=== PATIENT | male | born 1960 | race Caucasian/White ===

== ENCOUNTER 2017-04-03 12:51 | Emergency (ER) | payer OTHER ==
[2017-04-03] MEDS ORDERED: Aspirin 81 MG Tab.Chew PO ONE (13:16)
[2017-04-03] MEDS ORDERED: Sodium Chloride 0.9% 10 ML Syringe FLUSH PRN (13:16)
--- NOTE | 2017-04-03 13:22 | EDM.PDOC ---
ED HPI GENERAL MEDICAL PROBLEM - General Chief Complaint: Chest Pain Stated Complaint: Chest pain Time Seen by Provider: 04/03/17 13:00 Source of Information: Reports: Patient, RN Notes Reviewed History Limitations: Reports: No Limitations - History of Present Illness INITIAL COMMENTS - FREE TEXT/NARRATIVE: 56 year old male presents to the ED with substernal chest pain for the past 12+ hours. Symptoms started last evening and have been constant since that time. The pain is described as a pressure. The pain radiates into his back, right neck and left arm. He has associated diaphoresis and nausea but no vomiting. He feels short of breath and is very anxious. He reports a recent cold with cough and congestion. No fever or chills. His chest is non-tender to palpation. He smokes approximately 1/2 ppd and is trying to quit. He has a history of an MT in his 40s. He is a delivery truck driver. No lower extremity edema or calf pain. No history of blood clots. He admits to drinking 3 "crown bombs" last evening which consist of whiskey mixed with an energy drink. He denies drinking alcohol daily. Denies epigastric pain or tenderness. He also has a history of hypertension and anxiety attacks. He has a listed allergy to lorazepam but says he is prescribed Ativan and does well with it. He has a family history of heart attack, his mother and brother specifically. Middle Chest Pain Score (Numeric/FACES): 7 - Related Data Allergies Allergy/AdvReac Type Severity Reaction Status Date / Time No Known Allergies Allergy Verified 04/03/17 13:31 Home Meds: Home Meds Albuterol [Ventolin HFA] 2 puff INH Q4H PRN 05/25/14 [History] Albuterol Sulfate 1.25 mg IH Q4HR PRN 07/19/14 [History] LORazepam 1 tab PO ASDIRECTED 04/03/17 [History] Lisinopril [Prinivil] 10 mg PO DAILY 04/03/17 [History] Multivitamin [Multi-Vitamin Daily] 1 tab PO DAILY 04/03/17 [History] Orphenadrine [Norflex] 100 mg PO BID #10 tab.er 04/03/17 [Rx] atorvaSTATin [Lipitor] 10 mg PO DAILY 04/03/17 [History] Past Medical History Cardiovascular History: Reports: MT Respiratory History: Reports: Asthma, COPD - Past Surgical History GI Surgical History: Reports: Colonoscopy Musculoskeletal Surgical History: Reports: ORIF Social & Family History - Tobacco Use Smoking Status *Q: Current Status Unknown Years of Tobacco use: 30 Packs/Tins Daily: 0.7 Used Tobacco, but Quit: No Month Tobacco Last Used: APRIL Second Hand Smoke Exposure: Yes - Alcohol Use Days Per Week of Alcohol Use: 0 - Recreational Drug Use Recreational Drug Use: Yes Recreational Drug Type: Reports: Marijuana/Hashish - Living Situation & Occupation Living situation: Reports: , with Spouse ED ROS GENERAL - Review of Systems Review Of Systems: See Below Constitutional: Reports: Diaphoresis. Denies: Fever, Chills Respiratory: Reports: Shortness of Breath, Cough. Denies: Pleuritic Chest Pain , Sputum Cardiovascular: Reports: Chest Pain. Denies: Edema GI/Abdominal: Reports: Nausea. Denies: Abdominal Pain, Vomiting Skin: Reports: Diaphoresis Psychiatric: Reports: Anxiety ED EXAM, GENERAL - Physical Exam Exam: See Below Exam Limited By: No Limitations General Appearance: Alert, WD/WN, Anxious, Mild Distress Respiratory/Chest: No Respiratory Distress, Lungs Clear, Normal Breath Sounds, No Accessory Muscle Use, Chest Non-Tender Cardiovascular: Normal Peripheral Pulses, No Edema, No Murmur, Tachycardia GI/Abdominal: Normal Bowel Sounds, Soft, Non-Tender, No Distention. No: Guarding, Rigid, Rebound Neurological: Alert, Oriented, Normal Cognition Psychiatric: Anxious Skin Exam: Warm, Intact, Diaphoretic EKG INTERPRETATION EKG Date: 04/03/17 Time: 12:57 Rhythm: other (sinus tach) Rate (beats/min): 107 [place]: normal P-wave: present QRS: normal ST-T: normal QT: normal EKG Interpretation Comments: EKG read by Dr. Frazier. No ischemic changes. Course - Vital Signs Last Recorded V/S: Last Vital Signs Temp 98.1 F 04/03/17 12:59 Pulse 70 04/03/17 18:20 Resp 12 04/03/17 18:20 BP 150/83 H 04/03/17 18:20 Pulse Ox 98 04/03/17 18:20 - Orders/Labs/Meds Orders: Active Orders 24 hr Category Date Time Status Cardiac Monitoring [RC] . DIRECTED Care 04/03/17 13:15 Active EKG 12 Lead [EKG Documentation Completion] [RC] STAT Care 04/03/17 13:15 Active Peripheral IV Care [RC] . DIRECTED Care 04/03/17 13:16 Active CXR [Chest 1V Frontal] [CR] Stat Exams 04/03/17 13:15 Taken Peripheral IV Insertion Adult [OM.PC] Stat Oth 04/03/17 13:16 Ordered Labs: Laboratory Tests 04/03/17 04/03/17 04/03/17 Range/Units 14:00 14:00 14:00 WBC 11.09 H (4.23-9.07) K/mm3 RBC 4.59 L (4.63-6.08) M/mm3 Hgb 14.4 (13.7-17.5) gm/L Hct 42.0 (40.1-51.0) % MCV 91.5 (79.0-92.2) fl MCH 31.4 (25.7-32.2) pg MCHC 34.3 (32.2-35.5) g/dl RDW Std Deviation 43.1 (35.1-43.9) fL Plt Count 290 (163-337) K/mm3 MPV 9.6 (9.4-12.3) fl Neut % (Auto) 69.5 H (34.0-67.9) % Lymph % (Auto) 18.8 L (21.8-53.1) % [place] % (Auto) 10.6 (5.3-12.2) % Eos % (Auto) 0.5 L (0.8-7.0) Baso % (Auto) 0.3 (0.1-1.2) % Neut # (Auto) 7.72 H (1.78-5.38) K/mm3 Lymph # (Auto) 2.08 (1.32-3.57) K/mm3 [place] # (Auto) 1.17 H (0.30-0.82) K/mm3 Eos # (Auto) 0.06 (0.04-0.54) K/mm3 Baso # (Auto) 0.03 (0.01-0.08) K/mm3 D-Dimer, Quantitative 0.27 (0.19-0.59) mg/L Sodium 142 (136-145) mEq/L Potassium 3.7 (3.5-5.1) mEq/L Chloride 104 (98-107) mEq/L Carbon Dioxide 23 (21-32) mEq/L Anion Gap 18.7 H (5-15) BUN 19 H (7-18) mg/dL Creatinine 0.9 (0.7-1.3) mg/dL Est Cr Clr Drug Dosing TNP Estimated GFR (MDRD) > 60 (>60) mL/min BUN/Creatinine Ratio 21.1 H (14-18) Glucose 112 H (74-106) mg/dL Calcium 9.0 (8.5-10.1) mg/dL Total Bilirubin 0.7 (0.2-1.0) mg/dL AST 19 (15-37) U/L ALT 27 (16-63) U/L Alkaline Phosphatase 124 H (46-116) U/L Troponin I < 0.017 (0.00-0.056) ng/mL Total Protein 7.8 (6.4-8.2) g/dl Albumin 3.9 (3.4-5.0) g/dl Globulin 3.9 gm/dL Albumin/Globulin Ratio 1.0 (1-2) /02/14 Range/Units 17:05 WBC (4.23-9.07) K/mm3 RBC (4.63-6.08) M/mm3 Hgb (13.7-17.5) gm/L Hct (40.1-51.0) % MCV (79.0-92.2) fl MCH (25.7-32.2) pg MCHC (32.2-35.5) g/dl RDW Std Deviation (35.1-43.9) fL Plt Count (163-337) K/mm3 MPV (9.4-12.3) fl Neut % (Auto) (34.0-67.9) % Lymph % (Auto) (21.8-53.1) % [place] % (Auto) (5.3-12.2) % Eos % (Auto) (0.8-7.0) Baso % (Auto) (0.1-1.2) % Neut # (Auto) (1.78-5.38) K/mm3 Lymph # (Auto) (1.32-3.57) K/mm3 [place] # (Auto) (0.30-0.82) K/mm3 Eos # (Auto) (0.04-0.54) K/mm3 Baso # (Auto) (0.01-0.08) K/mm3 D-Dimer, Quantitative (0.19-0.59) mg/L Sodium (136-145) mEq/L Potassium (3.5-5.1) mEq/L Chloride (98-107) mEq/L Carbon Dioxide (21-32) mEq/L Anion Gap (5-15) BUN (7-18) mg/dL Creatinine (0.7-1.3) mg/dL Est Cr Clr Drug Dosing Estimated GFR (MDRD) (>60) mL/min BUN/Creatinine Ratio (14-18) Glucose (74-106) mg/dL Calcium (8.5-10.1) mg/dL Total Bilirubin (0.2-1.0) mg/dL AST (15-37) U/L ALT (16-63) U/L Alkaline Phosphatase (46-116) U/L Troponin I < 0.017 (0.00-0.056) ng/mL Total Protein (6.4-8.2) g/dl Albumin (3.4-5.0) g/dl Globulin gm/dL Albumin/Globulin Ratio (1-2) Meds: Medications Discontinued Medications Generic Name Dose Route Start Last Admin Trade Name Freq PRN Reason Stop Dose Admin Aspirin 324 mg 04/03/17 13:16 04/03/17 13:25 Aspirin PO 04/03/17 13:17 324 mg ONETIME ONE Administration Lorazepam 1 mg 04/03/17 13:30 04/03/17 13:52 Ativan IVPUSH 04/03/17 13:31 1 mg ONETIME ONE Administration Sodium Chloride 10 ml 04/03/17 13:16 04/03/17 13:25 Saline Flush FLUSH 10 ml ASDIRECTED PRN Administration Keep Vein Open - Re-Assessments/Exams Free Text/Narrative Re-Assessment/Exam: The patient was extremely anxious upon arrival. He had a listed allergy to lorazepam but said he takes lorazepam at home and does not have an allergy. He was treated with aspirin and ativan upon arrival. Initial EKG was negative for ischemic changes. CBC is normal. CMP reveals elevated anion gap. Otherwise normal. Initial troponin is normal. D-dimer normal. Plan is to monitor and repeat troponin in 3 hours. Portable chest x-ray reveals hyperinflation. No acute infiltrates or effusions. Heart size and mediastinum appear normal. 3 hour troponin came back WNL. He reports improvement in his chest discomfort. He requests to be discharged and f/u with Dr. Romero in [place]. I considered obs admission but patient adamantly wants to go home. I thoroughly explained to him and his family that cardiac etiology has not been ruled out. I recommend a stress test and offered to set that up for him but he declined. He would like to see Dr. Romero and have him coordinate this. I instructed him to see Dr. Heather FLORES. He was thoroughly educated on return precautions. He has a history of chest wall injury and is requesting muscle relaxant. I agreed to give him a muscle relaxant to try but stressed again that cardiac etiology has not been ruled out. Departure - Departure Time of Disposition: 18:00 Disposition: Home, Self-Care 01 Condition: fair Clinical Impression: Chest pain of uncertain etiology Prescriptions: Orphenadrine [Norflex] 100 mg PO BID #10 tab.er Instructions: Nonspecific Chest Pain, [id number] Referrals: Kassandra Maxwell MD [Primary Care Provider] - Forms: ED Department Discharge Care Plan Goals: Follow-up with Dr. Heather flores, preferably tomorrow or Tuesday I recommend stress test for further evaluation of your chest pain Return to ER if symptoms persist or worsen in any way Continue lorazepam as needed for anxiety Muscle relaxer: Norflex 1 tab every 12 hours as needed - My Orders Last 24 Hours: My Active Orders 04/03/17 13:15 Cardiac Monitoring [RC] . DIRECTED EKG 12 Lead [EKG Documentation Completion] [RC] STAT CXR [Chest 1V Frontal] [CR] Stat 04/03/17 13:16 Peripheral IV Care [RC] . DIRECTED Peripheral IV Insertion Adult [OM.PC] Stat - Assessment/Plan Last 24 Hours: My Active Orders 04/03/17 13:15 Cardiac Monitoring [RC] . DIRECTED EKG 12 Lead [EKG Documentation Completion] [RC] STAT CXR [Chest 1V Frontal] [CR] Stat 04/03/17 13:16 Peripheral IV Care [RC] . DIRECTED Peripheral IV Insertion Adult [OM.PC] Stat
[2017-04-03] MEDS ORDERED: LORazepam 2 MG/ML MDV IVPUSH ONE (13:30)
[2017-04-03 18:37] VITALS: BP 150/83
--- NOTE | 2017-04-04 09:06 | CR ---
Chest: Portable view of the chest was obtained. Comparison: Previous chest x-ray of 12/28/15. Heart size and mediastinum are within normal limits for portable technique. Lungs are clear. Bony structures are grossly intact. Impression: 1. Nothing acute is identified on portable chest x-ray. Diagnostic code #1
== END 2017-04-03 18:30 | disposition home or self-care (01) ==
LOC: JD.ED 12:51
DX: R07.9 Chest pain, unspecified (principal); I25.2 Old myocardial infarction; J45.909 Unspecified asthma, uncomplicated; J44.9 Chronic obstructive pulmonary disease, unspecified; I10 Essential (primary) hypertension; F41.9 Anxiety disorder, unspecified; F17.210 Nicotine dependence, cigarettes, uncomplicated; Z79.899 Other long term (current) drug therapy; Z88.8 Allergy status to other drugs, medicaments and biological substances; Z98.890 Other specified postprocedural states
CPT/HCPCS: 36415; 71010; 80053; 84484; 85025; 85379; 93005; 96374; 99285; A9270; J2060; J7050; 99284

== ENCOUNTER 2017-04-13 20:16 | Emergency (ER) | payer OTHER ==
[2017-04-13] MEDS ORDERED: Sodium Chloride 0.9% 10 ML Syringe FLUSH PRN (20:38)
[2017-04-13] MEDS ORDERED: Aspirin 81 MG Tab.Chew PO ONE (20:38)
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
[2017-04-13] MEDS ORDERED: Metoprolol Tartrate 25 MG Tab PO ONE (22:37)
[2017-04-13] MEDS ORDERED: Enoxaparin 80 MG/0.8 ML Syringe SUBCUT ONE (22:39)
[2017-04-13] MEDS ORDERED: Nitroglycerin/D5W 25 MG/250 ML BOTTLE IV SCH (22:45)
[2017-04-13] MEDS ORDERED: Metoprolol Tartrate 50 MG Tab ONE (22:50)
[2017-04-13] MEDS ORDERED: Enoxaparin 80 MG/0.8 ML Syringe ONE (22:54)
[2017-04-13] MEDS ORDERED: Nitroglycerin/D5W 25 MG/250 ML BOTTLE ONE (22:59)
[2017-04-13 23:06] VITALS: BP 130/77
--- NOTE | 2017-04-14 07:46 | CR ---
Chest: Frontal view of the chest was obtained. Comparison: Previous chest x-ray of 04/03/17. Heart size and mediastinum are within normal limits. Lungs are clear. Bony structures are grossly intact. Impression: 1. Nothing acute is identified on frontal chest x-ray. Diagnostic code #1
== END 2017-04-13 23:40 ==
LOC: JD.ED 20:16
DX: I20.0 Unstable angina (principal); I10 Essential (primary) hypertension; E78.00 Pure hypercholesterolemia, unspecified; I25.2 Old myocardial infarction; J45.909 Unspecified asthma, uncomplicated; J44.9 Chronic obstructive pulmonary disease, unspecified; F41.9 Anxiety disorder, unspecified; F17.210 Nicotine dependence, cigarettes, uncomplicated; Z98.890 Other specified postprocedural states; Z79.899 Other long term (current) drug therapy
CPT/HCPCS: 36415; 71010; 80053; 83880; 84484; 85025; 93005; 96365; 96372; 99285; A9270; J1650; 99284

== ENCOUNTER → 2017-12-07 | Day surgery (SDC) | payer BC ==
[~2017-12-07] MED LIST: Lactated Ringers 1,000 ML IV SCH; Lidocaine 1%/Sod Bicarbonate in NS 8.4% 1 ML Syringe IDERM PRN; Midazolam 1 MG/ML 2 ML SDV ONE; Propofol 200 MG/20 ML SDV ONE; Sodium Chloride 0.9% 10 ML Syringe FLUSH PRN; fentaNYL 100 MCG/2 ML SDV ONE
--- NOTE | 2017-12-07 10:54 | PCM.PREANE ---
Preanesthetic Assessment - Anesthesia/Transfusion/Family Hx Anesthesia History: Prior Anesthesia Without Reaction Family History of Anesthesia Reaction: No Transfusion History: No Prior Transfusion(s) - Review of Systems General: No Symptoms Pulmonary: Cough Cardiovascular: No Symptoms, Dyspnea on Exertion Gastrointestinal: No Symptoms Neurological: Numbness (left hand) Other: Reports: None - Physical Assessment NPO Status Date: 12/06/17 NPO Status Time: 00:00 Pulse: 75 O2 Sat by Pulse Oximetry: 96 Respiratory Rate: 20 Blood Pressure: 146/98 Temperature: 36.7 C Height: 1.83 m Weight: 78 kg ASA Class: 3 Mental Status: Alert & Oriented x3 Airway Class: Mallampati = 1 Dentition: Reports: Dentures Thyro-Mental Finger Breadths: 3 Mouth Opening Finger Breadths: 3 ROM/Head Extension: Full Lungs: Clear to Auscultation, Normal Respiratory Effort Cardiovascular: Regular Rate, Regular Rhythm - Allergies Allergies/Adverse Reactions: Allergies Allergy/AdvReac Type Severity Reaction Status Date / Time pet dander Allergy Cannot Uncoded 12/06/17 14:54 Remember - Blood Blood Available: No Product(s) Available: None - Anesthesia Plan Pre-Op Medication Ordered: None - Acknowledgements Anesthesia Type Planned: MAC Pt an Appropriate Candidate for the Planned Anesthesia: Yes Alternatives and Risks of Anesthesia Discussed w Pt/Guardian: Yes Pt/Guardian Understands and Agrees with Anesthesia Plan: Yes PreAnesthesia Questionnaire HEENT History: Reports: Allergic Rhinitis, Hard of Hearing, Impaired Vision, Otitis Media, Other (See Below) Other HEENT History: right eye conjunctivitis, wears glasses, has dentures Cardiovascular History: Reports: CAD, Hypertension, [place] Other Cardiovascular History: mitral valve prolapse, atypical chest pain, [place], heart cath x 2 Respiratory History: Reports: Asthma, COPD, Other (See Below) Other Respiratory History: cough, pneumonia Gastrointestinal History: Reports: Chronic Diarrhea, GERD, Other (See Below) Other Gastrointestinal History: stool incontinence Genitourinary History: Reports: Prostate Disorder, Other (See Below) Other Genitourinary History: frequency, anuria 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 Musculoskeletal History: Reports: Back Pain, Chronic, Other (See Below) Other Musculoskeletal History: left ischium fracture, tibia fracture, muscle pain, right elbow lateral epicondylitis, lumbar spine straine, medic al meniscus tear, pelvic fracutre, left knee strain Neurological History: Reports: Headaches, Chronic Psychiatric History: Reports: Anxiety, Depression, Other (See Below) Other Psychiatric History: insomnia Endocrine/Metabolic History: Reports: None Hematologic History: Reports: None Immunologic History: Reports: None Oncologic (Cancer) History: Reports: None Dermatologic History: Reports: Other (See Below) Other Dermatologic History: cellulitis - Past Surgical History Head Surgeries/Procedures: Reports: None HEENT Surgical History: Reports: None Cardiovascular Surgical History: Reports: None Respiratory Surgical History: Reports: None GI Surgical History: Reports: Colonoscopy Female Surgical History: Reports: None Male Surgical History: Reports: None Endocrine Surgical History: Reports: None Neurological Surgical History: Reports: None Musculoskeletal Surgical History: Reports: ORIF Other Musculoskeletal Surgeries/Procedures:: left ankle surgery with hardware Oncologic Surgical History: Reports: None Dermatological Surgical History: - SUBSTANCE USE Smoking Status *Q: Current Every Day Smoker Tobacco Use Within Last Twelve Months: Cigarettes Second Hand Smoke Exposure: Yes Days Per Week of Alcohol Use: 0 Number of Drinks Per Day: 1 Total Drinks Per Week: 0 Recreational Drug Use History: No Recreational Drug Type: Reports: Marijuana/Hashish - HOME MEDS Home Medications: Home Meds Albuterol [Ventolin HFA] 2 puff INH Q4H PRN 05/25/14 [History] Lisinopril [Prinivil] 10 mg PO DAILY 04/03/17 [History] Tamsulosin [Flomax] 0.4 mg PO DAILY 12/06/17 [History] atorvaSTATin Calcium [Atorvastatin Calcium] 20 mg PO DAILY 12/06/17 [History] - CURRENT (IN HOUSE) MEDS Current Meds: Current Medications Lactated Ringer's (Ringers, Lactated) 1,000 mls @ 125 mls/hr IV ASDIRECTED MINDY Stop: 12/07/17 23:00 Lidocaine/Sodium Bicarbonate (Buffered Lidocaine 1% In Ns 8.4%) 0.25 ml IDERM ONETIME PRN PRN Reason: Prior to IV Start Stop: 12/07/17 18:00 Sodium Chloride (Saline Flush) 10 ml FLUSH ASDIRECTED PRN PRN Reason: Keep Vein Open Stop: 12/07/17 18:00
--- NOTE | 2017-12-07 11:53 | PCM.OPNOTE ---
- General Post-Op/Procedure Note Operative Procedure(s): 1. Esophagogastroduodenoscopy with GE junction biopsy. 2. Diagnostic colonoscopy with right colon transverse colon and rectal biopsies ; diminutive sigmoid polypectomy Findings: 1. Normal upper endoscopy 2. Large prolapsed 3 column internal hemorrhoids, normal prostate 3. Sigmoid diverticulosis 4. Diminutive sigmoid polyp No upper endoscopic or lower endoscopic inflammatory changes seen endoscopically. Pre Op Diagnosis: 1. GERD. 2. Chronic diarrhea of unknown etiology Post-Op Diagnosis: 1. Normal upper endoscopy. 2. Large prolapsed 3 column internal hemorrhoids, normal prostate. 3. Sigmoid diverticulosis. 4. Diminutive sigmoid polyp Anesthesia Technique: MAC, Moderate Sedation Primary Surgeon: Holland Menendez Pathology: 1. GE junction biopsy 2. Ascending colon transverse colon and rectal biopsies 3. Sigmoid polyp EBL in mLs: 0 Complications: None Condition: Good Free Text/Narrative:: After adequate IV sedation and analgesia was obtained the patient was placed on his left side with monitoring. Through a bite block a lubricated upper endoscope was inserted into the esophagus and advanced under direct vision to the stomach. Additional air was given here. The scope was advanced towards the antrum and pylorus. The second and first parts of the duodenum were endoscopically normal with no mass lesions or inflammatory changes seen. The antrum was unremarkable. In the retroflexed B the fundic and cardiac regions were endoscopically normal. There was no hiatal hernia. The body of the stomach was normal as well. The scope was then withdrawn to the GE junction. I biopsied the GE junction 2 with cold forceps for histologic evaluation. The body of the esophagus was unremarkable. The vocal cords were briefly visualized on extubation and were normal. Perianal inspection and digital rectal examination were performed next and were remarkable for large prolapse 3 column internal hemorrhoids which were uncomplicated. They were reducible A lubricated colonoscope was inserted into the rectum through a tortuous sigmoid to the cecum without difficulty. The bowel preparation was adequate. The cecum ascending colon transverse and descending colons were endoscopically normal with no mass lesions or inflammatory changes. Given his history I took random biopsy of the right colon and transverse colons. The sigmoid had circular muscle hypertrophy along with associated sigmoid diverticula. The rectum in both views was unremarkable. I took random biopsy 2 in this area as well. Air was removed as I finished the procedure. Photographs were taken for the patient and for the medical records. There were no procedural complications.
[2017-12-07 12:25] VITALS: BP 135/88
== END | disposition home or self-care (01) ==
LOC: JD.SDS 10:16
PROVIDERS: ATTEND Surgery
DX: K57.30 Diverticulosis of large intestine without perforation or abscess without bleeding (principal); K64.8 Other hemorrhoids; J30.81 Allergic rhinitis due to animal (cat) (dog) hair and dander
CPT/HCPCS: 43239; 45380; J2250; J3010; J7120; 00813; J2704

== ENCOUNTER 2018-01-18 10:32 | Day surgery (SDC) | payer BC ==
--- NOTE | 2018-01-18 09:36 | PCM.PREANE ---
Preanesthetic Assessment - Anesthesia/Transfusion/Family Hx Anesthesia History: Prior Anesthesia Without Reaction Family History of Anesthesia Reaction: No Transfusion History: No Prior Transfusion(s) Intubation History: Unknown - Review of Systems General: No Symptoms Pulmonary: No Symptoms (current every day smoker/less than 1 pack/day times 15 years./ History of COPD, Asthma/history of Marijuana use) Cardiovascular: No Symptoms (history of HTN, [place], heart catheterization noted a few months ago, patient does not remember exact month.), Dyspnea on Exertion, Lightheadedness (Patient states with current medications, dizziness does occur.) Gastrointestinal: No Symptoms Neurological: No Symptoms ( lower back pain) Other: Reports: None - Physical Assessment NPO Status Date: 01/17/18 NPO Status Time: 21:00 Pulse: 78 O2 Sat by Pulse Oximetry: 98 Respiratory Rate: 16 Blood Pressure: 129/89 Temperature: 36.9 C Height: 1.83 m Weight: 79.832 kg ASA Class: 3 Mental Status: Alert & Oriented x3 Airway Class: Mallampati = 1 Dentition: Reports: Dentures Thyro-Mental Finger Breadths: 3 Mouth Opening Finger Breadths: 3 ROM/Head Extension: Full Lungs: Clear to Auscultation, Normal Respiratory Effort Cardiovascular: Regular Rate, Regular Rhythm, No Murmurs - Lab Values: All lab values reviewed and noted and within acceptable ranges to proceed with scheduled procedure. - Imaging/EKG Impressions: EKG: SR rate= 80. Echocardiogram: EF=55%, trace tricuspid/trace bicuspid valve regurgitation/ mild concentric left ventricular hypertrophy. - Allergies Allergies/Adverse Reactions: Allergies Allergy/AdvReac Type Severity Reaction Status Date / Time pet dander Allergy Cannot Uncoded 01/17/18 13:54 Remember - Anesthesia Plan Pre-Op Medication Ordered: None - Acknowledgements Anesthesia Type Planned: MAC Pt an Appropriate Candidate for the Planned Anesthesia: Yes Alternatives and Risks of Anesthesia Discussed w Pt/Guardian: Yes Pt/Guardian Understands and Agrees with Anesthesia Plan: Yes PreAnesthesia Questionnaire HEENT History: Reports: Allergic Rhinitis, Hard of Hearing, Impaired Vision, Otitis Media, Other (See Below) Other HEENT History: right eye conjunctivitis, wears glasses, has dentures Cardiovascular History: Reports: CAD, Hypertension, [place] Other Cardiovascular History: mitral valve prolapse, atypical chest pain, [place], heart cath x 2 Respiratory History: Reports: Asthma, COPD, Other (See Below) Other Respiratory History: cough, pneumonia Gastrointestinal History: Reports: Chronic Diarrhea, GERD, Other (See Below) Other Gastrointestinal History: stool incontinence Genitourinary History: Reports: Prostate Disorder, Other (See Below) Other Genitourinary History: frequency, anuria 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 Musculoskeletal History: Reports: Back Pain, Chronic, Other (See Below) Other Musculoskeletal History: left ischium fracture, tibia fracture, muscle pain, right elbow lateral epicondylitis, lumbar spine straine, medic al meniscus tear, pelvic fracutre, left knee strain Neurological History: Reports: Headaches, Chronic Psychiatric History: Reports: Anxiety, Depression, Other (See Below) Other Psychiatric History: insomnia Endocrine/Metabolic History: Reports: None Hematologic History: Reports: None Immunologic History: Reports: None Oncologic (Cancer) History: Reports: None Dermatologic History: Reports: Other (See Below) Other Dermatologic History: cellulitis - Past Surgical History Head Surgeries/Procedures: Reports: None HEENT Surgical History: Reports: None Cardiovascular Surgical History: Reports: None Respiratory Surgical History: Reports: None GI Surgical History: Reports: Colonoscopy Female Surgical History: Reports: None Male Surgical History: Reports: None Endocrine Surgical History: Reports: None Neurological Surgical History: Reports: None Musculoskeletal Surgical History: Reports: ORIF Other Musculoskeletal Surgeries/Procedures:: left ankle surgery with hardware Oncologic Surgical History: Reports: None - SUBSTANCE USE Smoking Status *Q: Current Every Day Smoker Tobacco Use Within Last Twelve Months: Cigarettes Second Hand Smoke Exposure: Yes Days Per Week of Alcohol Use: 0 Number of Drinks Per Day: 1 Total Drinks Per Week: 0 Recreational Drug Use History: No Recreational Drug Type: Reports: Marijuana/Hashish - HOME MEDS Home Medications: Home Meds Albuterol [Ventolin HFA] 2 puff INH Q4H PRN 05/25/14 [History] Lisinopril [Prinivil] 10 mg PO DAILY 04/03/17 [History] Tamsulosin [Flomax] 0.4 mg PO DAILY 12/06/17 [History] atorvaSTATin Calcium [Atorvastatin Calcium] 20 mg PO DAILY 12/06/17 [History] Omeprazole 20 mg PO BID 01/17/18 [History] Sildenafil [Viagra] 75 mg PO ASDIRECTED PRN 01/17/18 [History] - CURRENT (IN HOUSE) MEDS Current Meds: Current Medications Lactated Ringer's (Ringers, Lactated) 1,000 mls @ 125 mls/hr IV ASDIRECTED MINDY Stop: 01/18/18 23:00 Lidocaine/Sodium Bicarbonate (Buffered Lidocaine 1% In Ns 8.4%) 0.25 ml IDERM ONETIME PRN PRN Reason: Prior to IV Start Stop: 01/18/18 18:00 Sodium Chloride (Saline Flush) 10 ml FLUSH ASDIRECTED PRN PRN Reason: Keep Vein Open Stop: 01/18/18 18:00 Discontinued Medications Lidocaine HCl (Xylocaine-Mpf 1%) Confirm Administered Dose 4 mls @ as directed .ROUTE .STK-MED ONE Stop: 01/18/18 08:14 Propofol (Diprivan 20 Ml) Confirm Administered Dose 200 mg .ROUTE .STK-MED ONE Stop: 01/18/18 08:14
[~2018-01-18 10:32] MED LIST changes: +Lidocaine 1% 4 ML ONE; -Midazolam 1 MG/ML 2 ML SDV ONE; -fentaNYL 100 MCG/2 ML SDV ONE
[2018-01-18] MEDS ORDERED: fentaNYL 100 MCG/2 ML SDV ONE (11:11)
[2018-01-18] MEDS ORDERED: ePHEDrine 50 MG/ML SDV ONE (11:20)
[2018-01-18] MEDS ORDERED: Bupivacaine 0.5%/EPINEPHrine 1:200,000 50 ML MDV ONE (11:41)
[2018-01-18] MEDS ORDERED: Lidocaine 1% with EPINEPHrine 1:100,000 20 ML MDV ONE (11:41)
[2018-01-18] MEDS ORDERED: Midazolam 1 MG/ML 2 ML SDV ONE (11:44)
[2018-01-18] MEDS ORDERED: Ondansetron 4 MG/2 ML SDV IVPUSH PRN (12:54)
[2018-01-18] MEDS ORDERED: fentaNYL 100 MCG/2 ML SDV IVPUSH PRN (12:54)
[2018-01-18] MEDS ORDERED: diphenhydrAMINE 50 MG/ML SDV IVPUSH PRN (12:54)
--- NOTE | 2018-01-18 13:01 | PCM.OPNOTE ---
- General Post-Op/Procedure Note Date of Surgery/Procedure: 01/18/18 Operative Procedure(s): 3 column internal hemorrhoid rubber band ligation with the short shot Findings: 3 column slightly prolapsed internal hemorrhoids Pre Op Diagnosis: 3 column internal hemorrhoids with intermittent painless bleeding Post-Op Diagnosis: Grade 2 internal hemorrhoids Anesthesia Technique: MAC, Moderate Sedation Primary Surgeon: Holland Menendez Pathology: None EBL in mLs: 2 Complications: None Condition: Good Free Text/Narrative:: After adequate IV sedation and analgesia was obtained with monitoring the patient was placed in the prone jackknife position with his buttocks taped. The perianal region was prepped with Betadine and draped sterilely. The 3 column hemorrhoids were slightly prolapsing in this position. Digital rectal examination was remarkable for the hemorrhoids with no mass lesions appreciated. The prostate was normal. Anoscopy was then performed next and this revealed the internal hemorrhoids with no mass lesions identified. With the working scope in place I then used the Short Shot and fired rubber bands in the left lateral right anterior and right posterior columns. There were no complications.
[2018-01-18] MEDS ORDERED: Lidocaine 1% 2 ML ONE ×3 (13:05→13:06)
--- NOTE | 2018-01-18 13:10 | PCM48HPAN ---
Post Anesthesia Note - EVALUATION WITHIN 48HRS OF ANESTHETIC Vital Signs in Normal Range: Yes Patient Participated in Evaluation: Yes Respiratory Function Stable: Yes Airway Patent: Yes Cardiovascular Function Stable: Yes Hydration Status Stable: Yes Pain Control Satisfactory: Yes Nausea and Vomiting Control Satisfactory: Yes Mental Status Recovered: Yes
[2018-01-18 13:50] VITALS: BP 137/81
== END 2018-01-18 14:35 | disposition home or self-care (01) ==
LOC: JD.SDS 10:32
PROVIDERS: ATTEND Surgery
DX: K64.1 Second degree hemorrhoids (principal); I25.10 Atherosclerotic heart disease of native coronary artery without angina pectoris; G89.29 Other chronic pain; M54.5 Low back pain; J44.9 Chronic obstructive pulmonary disease, unspecified; F41.1 Generalized anxiety disorder; K21.9 Gastro-esophageal reflux disease without esophagitis; I10 Essential (primary) hypertension; E78.2 Mixed hyperlipidemia; Z79.899 Other long term (current) drug therapy; J30.81 Allergic rhinitis due to animal (cat) (dog) hair and dander; F17.210 Nicotine dependence, cigarettes, uncomplicated
CPT/HCPCS: 46221; J2250; J3010; J7120; 00902; A9270-GY; J2704

== ENCOUNTER 2019-03-02 19:52 | Emergency (ER) | payer BC | END 2019-03-02 21:11 | disposition left against medical advice (07) | LOC: JD.ED 19:52 | DX: Z53.21 Procedure and treatment not carried out due to patient leaving prior to being seen by health care provider (principal) ==

== ENCOUNTER 2024-03-19 14:02 | Emergency (ER) | payer SELFPAY ==
[2024-03-19] MEDS ORDERED: Diltiazem 125 MG in Sodium Chloride 0.9% 100 ML IV SCH ×3 (15:00→16:00)
[2024-03-19 15:01] LABS: BASOPHILS PERCENT AUTO 0.2 % (0.0-1.0); EOSINOPHILS PERCENT AUTO 0.1 % (0.0-6.0); HEMATOCRIT 41.9 % (42.0-52.0); HEMOGLOBIN 13.7 gm/dl (14.0-18.0); IMMATURE GRAN ABSOLUTE AUTO 0.05 K/mm3 (0.00-0.05); IMMATURE GRAN PERCENT AUTO 0.5 % (0.0-0.4); LYMPHOCYTES ABSOLUTE AUTO 1.5 K/mm3 (1.0-4.8); LYMPHOCYTES PERCENT AUTO 13.8 % (24.0-44.0); MEAN CORPUSCULAR HEMOGLOBIN 31.6 pg (28.0-32.0); MEAN CORPUSCULAR HGB CONC 32.7 g/dl (32.0-36.0); MEAN CORPUSCULAR VOLUME 96.8 fl (83.0-99.0); MEAN PLATELET VOLUME 12.4 fl (9.4-12.4); MONOCYTES ABSOLUTE AUTO 0.9 K/mm3 (0.0-0.8); MONOCYTES PERCENT AUTO 8.3 % (0.0-8.0); NEUTROPHILS ABSOLUTE AUTO 8.5 K/mm3 (1.8-7.7); NEUTROPHILS PERCENT AUTO 77.1 % (41.0-71.0); NRBC ABSOLUTE 0.17 (0.00-0.02); NRBC PERCENT 1.6 % (0.0-0.2); PLATELET COUNT,PLT 153 K/mm3 (150-400); RED BLOOD CELL COUNT 4.33 M/mm3 (4.52-5.90); WHITE BLOOD CELL COUNT,WBC 10.96 K/mm3 (3.9-11.3)
[2024-03-19] MEDS: Diltiazem 25 MG/5 ML SDV IVPUSH ONE (15:37)
[2024-03-19] MEDS: Sodium Chloride 0.9% 10 ML Syringe FLUSH PRN (15:38)
[2024-03-19] MEDS ORDERED: Diltiazem 25 MG/5 ML SDV IVPUSH ONE (15:46)
[2024-03-19 15:50] LABS: INR 3.1; PROTHROMBIN TIME 30.5 SECONDS (9.7-12.0)
[2024-03-19 15:50] LABS: LACTIC ACID 3.9 mmol/L (0.4-2.0)
[2024-03-19 15:51] LABS: A/G RATIO 0.9 (1-2); ALBUMIN 3.3 g/dl (3.4-5.0); ALKALINE PHOSPHATASE 231 U/L (46-116); ANION GAP 18.4 (5-15); BILIRUBIN TOTAL 7.2 mg/dL (0.2-1.0); BLOOD UREA NITROGEN,BUN 39 mg/dL (7-18); BUN/CREATININE RATIO 32.5 (14-18); C-REACTIVE PROTEIN 18.35 mg/dL (<0.30); CALCIUM 8.7 mg/dL (8.5-10.1); CARBON DIOXIDE,CO2 21 mEq/L (21-32); CHLORIDE,CL 97 mEq/L (98-107); EST CRCL DRUG DOSING (CG) 70.95 mL/min; ESTIMATED GFR 69 mL/min (>60); GLUCOSE RANDOM 123 mg/dL (70-99); PTT,PARTIAL THROMBOPLSTIN TIME 28.3 SECONDS (21.7-31.4); SODIUM,NA 131 mEq/L (136-145); TROPONIN I HIGH SENSITIVITY 46 pg/mL (<=76)
[2024-03-19] MEDS: Metoprolol Tartrate 25 MG Tab PO ONE (15:52)
[2024-03-19 15:53] VITALS: BP 155/121; PULSE 127
[2024-03-19] MEDS ORDERED: Sodium Chloride 0.9% 1,000 ML IV SCH (16:00)
[2024-03-19 16:06] LABS: MAGNESIUM 2.2 mg/dL (1.8-2.4); PROTEIN TOTAL,TP 7.2 g/dl (6.4-8.2)
[2024-03-19 16:07] LABS: CREATININE 1.2 mg/dL (0.7-1.3); POTASSIUM,K 5.4 mEq/L (3.5-5.1)
== END 2024-03-19 16:00 | disposition left against medical advice (07) ==
LOC: JD.ED 14:02
DX: I48.91 Unspecified atrial fibrillation (principal); R17 Unspecified jaundice; R06.82 Tachypnea, not elsewhere classified; I10 Essential (primary) hypertension; I25.10 Atherosclerotic heart disease of native coronary artery without angina pectoris; J44.9 Chronic obstructive pulmonary disease, unspecified; K21.9 Gastro-esophageal reflux disease without esophagitis; I25.2 Old myocardial infarction; Z87.891 Personal history of nicotine dependence; Z91.048 Other nonmedicinal substance allergy status; Z79.51 Long term (current) use of inhaled steroids; Z79.899 Other long term (current) drug therapy
CPT/HCPCS: 36415; 71045; 71045-26; 80053; 82947; 83605; 83735; 84484; 85025; 85379; 85610; 85730; 86140; 87040; 93005; 93010; 96374; 99284; 99285-25; A9270-GY; J3490

== ENCOUNTER 2024-03-25 17:39 | Emergency (ER) | payer SELFPAY ==
[2024-03-25 18:48] LABS: BASOPHILS PERCENT AUTO 0.3 % (0.0-1.0); EOSINOPHILS ABSOLUTE AUTO 0.1 K/mm3 (0.0-0.4); EOSINOPHILS PERCENT AUTO 0.7 % (0.0-6.0); HEMATOCRIT 38.3 % (42.0-52.0); HEMOGLOBIN 12.2 gm/dl (14.0-18.0); IMMATURE GRAN ABSOLUTE AUTO 0.05 K/mm3 (0.00-0.05); IMMATURE GRAN PERCENT AUTO 0.5 % (0.0-0.4); LYMPHOCYTES ABSOLUTE AUTO 1.1 K/mm3 (1.0-4.8); LYMPHOCYTES PERCENT AUTO 10.3 % (24.0-44.0); MEAN CORPUSCULAR HEMOGLOBIN 31.1 pg (28.0-32.0); MEAN CORPUSCULAR HGB CONC 31.9 g/dl (32.0-36.0); MEAN CORPUSCULAR VOLUME 97.7 fl (83.0-99.0); MEAN PLATELET VOLUME 11.3 fl (9.4-12.4); MONOCYTES ABSOLUTE AUTO 0.9 K/mm3 (0.0-0.8); MONOCYTES PERCENT AUTO 9.1 % (0.0-8.0); NEUTROPHILS PERCENT AUTO 79.1 % (41.0-71.0); PLATELET COUNT,PLT 191 K/mm3 (150-400); RED BLOOD CELL COUNT 3.92 M/mm3 (4.52-5.90); WHITE BLOOD CELL COUNT,WBC 10.15 K/mm3 (3.9-11.3)
[2024-03-25] MEDS: Diltiazem 25 MG/5 ML SDV IVPUSH ONE (18:55)
[2024-03-25] MEDS: Diltiazem 125 MG in Sodium Chloride 0.9% 100 ML IV SCH (18:55)
[2024-03-25 19:14] LABS: LACTIC ACID 1.7 mmol/L (0.4-2.0)
[2024-03-25 19:21] LABS: A/G RATIO 0.8 (1-2); ANION GAP 12.7 (5-15); BILIRUBIN TOTAL 2.4 mg/dL (0.2-1.0); BUN/CREATININE RATIO 17.1 (14-18); CALCIUM 8.2 mg/dL (8.5-10.1); CREATININE 1.4 mg/dL (0.7-1.3); EST CRCL DRUG DOSING (CG) 60.82 mL/min; POTASSIUM,K 3.7 mEq/L (3.5-5.1); TSH 1.533 uIU/mL (0.358-3.74)
[2024-03-25] MEDS ORDERED: Furosemide 20 MG/2 ML VIAL IVPUSH ONE (19:26)
[2024-03-25] MEDS: Diltiazem 180 MG Cap.CD PO ONE (19:26)
[2024-03-25 20:38] VITALS: BP 155/105; PULSE 127
== END 2024-03-25 20:00 | disposition left against medical advice (07) ==
LOC: JD.ED 17:39
DX: R07.89 Other chest pain (principal); R06.02 Shortness of breath; I25.10 Atherosclerotic heart disease of native coronary artery without angina pectoris; I10 Essential (primary) hypertension; I25.2 Old myocardial infarction; J44.9 Chronic obstructive pulmonary disease, unspecified; K21.9 Gastro-esophageal reflux disease without esophagitis; Z79.899 Other long term (current) drug therapy; Z91.048 Other nonmedicinal substance allergy status; Z53.29 Procedure and treatment not carried out because of patient's decision for other reasons
CPT/HCPCS: 36415; 71045; 80053; 80307; 83605; 83880; 84443; 84484; 85025; 85379; 93005; 96365; 99285; J3490; 93010; 99283